=== PATIENT | male | born 1960 | race Caucasian/White ===

== ENCOUNTER 2016-08-16 10:48 | Inpatient (IN) | payer OTHER ==
[~2016-08-16] VITALS: Ht 180.3 cm; Wt 90.0 kg
[2016-08-16 11:25] VITALS: BP 150/85; PULSE 102; RESP 18; TEMP 98.7; O2SAT 94
[2016-08-16] MEDS ORDERED: SODIUM CHLOR 0.9% 1000 ML INJ 1,000 ML IV SCH (11:39)
[2016-08-16] MEDS ORDERED: LORazepam 2 MG/ML VIAL IV PUSH ONE (11:45)
[2016-08-16] MEDS ORDERED: ONDANSETRON HCL 4 MG/2 ML VIAL IVP ONE (11:45)
[2016-08-16 11:49] LABS: BASOPHIL # 0.1 TH/MM3 (0-0.2); BASOPHIL % 0.5 % (0.0-2.0); HEMATOCRIT 36.9 % (39.0-51.0); LYMPH % 2.6 % (9.0-44.0); LYMPHOCYTE # 0.3 TH/MM3 (1.0-4.8); MEAN CELL VOLUME 98.8 FL (80.0-100.0); MEAN CORPUSCULAR HEMOGLOBIN 34.6 PG (27.0-34.0); MONO % 8.9 % (0.0-8.0); PLATELET COUNT 92 TH/MM3 (150-450); RED BLOOD COUNT 3.74 MIL/MM3 (4.50-5.90); RED CELL DISTRIBUTION WIDTH 12.9 % (11.6-17.2); WHITE BLOOD COUNT 10.2 TH/MM3 (4.0-11.0)
[2016-08-16 11:51] LABS: HEMO FLAGS AUTO DIFF
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
[2016-08-16 12:04] LABS: ALT (GPT) 37 U/L (12-78); ANION GAP 9 MEQ/L (5-15); AST (GOT) 65 U/L (15-37); BICARBONATE 25.3 MEQ/L (21.0-32.0); BLOOD UREA NITROGEN 12 MG/DL (7-18); CHLORIDE 102 MEQ/L (98-107); GLOMERULAR FILTRATION RATE 106 ML/MIN (>89); POTASSIUM 3.5 MEQ/L (3.5-5.1); SODIUM (NA) 136 MEQ/L (136-145)
[2016-08-16 12:07] LABS: ALKALINE PHOSPHATASE 107 U/L (45-117)
[2016-08-16] MEDS ORDERED: LORazepam 1 MG TAB PO PRN (13:00)
[2016-08-16] MEDS ORDERED: FLUMAZENIL 0.5 MG/5 ML VIAL IV PUSH PRN (13:00)
[2016-08-16] MEDS ORDERED: LORazepam 2 MG TAB PO PRN (13:00)
[2016-08-16] MEDS ORDERED: THIAMINE INJ 100 MG in SODIUM CHLORIDE 0.9% INJ 100 ML IV ONE (13:00)
[2016-08-16] MEDS ORDERED: LORazepam 2 MG/ML VIAL IV PUSH PRN ×3 (13:00)
[2016-08-16] MEDS ORDERED: ONDANSETRON HCL 4 MG/2 ML VIAL IV PUSH PRN (13:00)
[2016-08-16 13:04] LABS: PLATELET ESTIMATE SMEAR LOW (NORMAL); PLATELET MORPHOLOGY NORMAL (NORMAL); SCAN/DIFF AUTO DIFF CONFIRMED
--- NOTE | 2016-08-16 13:13 | RADRPT ---
EXAM DATE/TIME: 08/16/2016 12:17 [facility] COMPARISON: CT BRAIN W/O CONTRAST, November 30, 2012, 19:53. CT BRAIN W/O CONTRAST, December 09, 2015, 16:26. CT BRAIN W/ O CONTRAST, July 11, 2016, 20:03. INDICATIONS : Seizure today. RADIATION DOSE: 56.36 CTDIvol (mGy) MEDICAL HISTORY : Chronic obstructive pulmonary disease. Seizures. Diabetes SURGICAL HISTORY : Tonsillectomy. Neuro surg ENCOUNTER: Initial ACUITY: 1 day PAIN SCALE: 8/10 LOCATION: cranial TECHNIQUE: Multiple contiguous axial images were obtained of the head. Using automated exposure control and adj ustment of the mA and/or kV according to patient size, radiation dose was kept as low as reasonably a chievable to obtain optimal diagnostic quality images. FINDINGS: The ventricles are enlarged with a prominent sulcal pattern compatible with atrophic change. No acute intracranial hemorrhage, acute cortical infarction, mass or midline shift is seen. Posterior fossa s tructures are unremarkable. Bone windows are unremarkable. There is chronic because of disease completely opacifying the right ma xillary sinus with increased density centrally characteristics of a chronic process. This is dilating the medial wall of the right maxillary sinus with bone destruction extending into nasal cavity. CONCLUSION: 1. No evidence of acute intracranial pathology. No masses are identified. Diffuse cortical atrophy 2. Complete opacification right maxillary sinus which may reflect mucocele though malignancy cannot b e entirely excluded. Dedicated CT scan of the sinuses with contrast is recommended Vishal Gonzalez MD on August 16, 2016 at 13:07 Board Certified Radiologist. This report was verified electronically.
[2016-08-16 14:30] VITALS: BP 164/89; PULSE 102; RESP 20; O2SAT 94
[2016-08-16 17:00] VITALS: BP 158/62; PULSE 102; RESP 20; O2SAT 99
[2016-08-16 19:09] LABS: BLOOD, URINE MOD (NEG); COMMENT (UR) CULT NOT INDICATED; CULTURE IF INDICATED CULT NOT INDICATED; GLUCOSE,URINE TRACE mg/dL (NEG); HYALINE CAST, URINE 1 /lpf (RARE); KETONE, URINE 40 mg/dL (NEG); MUCUS URINE FEW /lpf (OCC); NITRITE,URINE NEG (NEG); SQUAMOUS EPITHELIAL CELL URINE <1 /hpf (0-5); URINE COLOR YELLOW (YELLW/STRAW)
--- NOTE | 2016-08-16 19:12 | PD ---
Physical Exam Date Seen by Provider: Aug 16, 2016 Time Seen by Provider: 19:09 Narrative 54-year-old male that presents to the ED for evaluation of alcohol abuse and psychiatric screening. Please refer to my prior note. Unfortunately my attending sign my note before I could finish the noted. Patient was cleared by psychiatry. Patient has been having lots of tremors and he is very unsteady on his gait. Patient appears to be in active alcohol withdrawal. CIWA protocol ordered but patient still having difficulty. I spoke with my attending who recommends admission for alcohol DTs Data Data Last Documented VS Vital Signs Date Time Temp Pulse Resp B/P Pulse Ox O2 Delivery O2 Flow Rate FiO2 08/16/16 17:00 102 20 158/62 99 Room Air 08/16/16 11:25 98.7 Orders Complete Blood Count With Diff (08/16/16 11:31) Urinalysis - C+S If Indicated (08/16/16 11:31) Psych Screen (08/16/16 11:31) Alcohol (Ethanol) (08/16/16 11:34) Comprehensive Metabolic Panel (08/16/16 11:34) Ondansetron Inj (Zofran Inj) (08/16/16 11:45) Sodium Chlor 0.9% 1000 Ml Inj (Ns 1000 M (08/16/16 11:39) Ct Brain W/O Iv Contrast(Rout) (08/16/16 11:39) Lorazepam Inj (Ativan Inj) (08/16/16 11:45) Lactic Acid (08/16/16 11:39) Alcohol Withdrawal Asmt-Ciwa ONCE (08/16/16 12:47) Ondansetron Inj (Zofran Inj) (08/16/16 13:00) Flumazenil Inj (Romazicon Inj) (08/16/16 13:00) Lorazepam (Ativan) (08/16/16 13:00) Lorazepam Inj (Ativan Inj) (08/16/16 13:00) Lorazepam (Ativan) (08/16/16 13:00) Lorazepam Inj (Ativan Inj) (08/16/16 13:00) Lorazepam Inj (Ativan Inj) (08/16/16 13:00) Lorazepam Inj (Ativan Inj) (08/16/16 13:00) Thiamine Inj (Thiamine Inj) (08/16/16 13:00) Labs Laboratory Tests Test 08/16/16 08/16/16 08/16/16 08/16/16 11:32 11:37 12:01 18:50 Sodium Level 136 MEQ/L Potassium Level 3.5 MEQ/L Chloride Level 102 MEQ/L Carbon Dioxide Level 25.3 MEQ/L Anion Gap 9 MEQ/L Blood Urea Nitrogen 12 MG/DL Creatinine 0.77 MG/DL Estimat Glomerular Filtration 106 ML/MIN Rate Random Glucose 109 MG/DL Calcium Level 9.3 MG/DL Total Bilirubin 1.0 MG/DL Aspartate Amino Transf 65 U/L (AST/SGOT) Alanine Aminotransferase 37 U/L (ALT/SGPT) Alkaline Phosphatase 107 U/L Total Protein 8.5 GM/DL Albumin 3.5 GM/DL Ethyl Alcohol Level LESS THAN 3 MG/DL White Blood Count 10.2 TH/MM3 Red Blood Count 3.74 MIL/MM3 Hemoglobin 12.9 GM/DL Hematocrit 36.9 % Mean Corpuscular Volume 98.8 FL Mean Corpuscular Hemoglobin 34.6 PG Mean Corpuscular Hemoglobin 35.0 % Concent Red Cell Distribution Width 12.9 % Platelet Count 92 TH/MM3 Mean Platelet Volume 7.8 FL Neutrophils (%) (Auto) 88.0 % Lymphocytes (%) (Auto) 2.6 % Monocytes (%) (Auto) 8.9 % Eosinophils (%) (Auto) 0.0 % Basophils (%) (Auto) 0.5 % Neutrophils # (Auto) 9.0 TH/MM3 Lymphocytes # (Auto) 0.3 TH/MM3 Monocytes # (Auto) 0.9 TH/MM3 Eosinophils # (Auto) 0.0 TH/MM3 Basophils # (Auto) 0.1 TH/MM3 CBC Comment AUTO DIFF Differential Comment AUTO DIFF CONFIRMED Platelet Estimate LOW Platelet Morphology Comment NORMAL Lactic Acid Level 0.9 mmol/L Urine Color YELLOW Urine Turbidity CLEAR Urine pH 6.0 Urine Specific [place] 1.018 Urine Protein 30 mg/dL Urine Glucose (UA) TRACE mg/dL Urine Ketones 40 mg/dL Urine Occult Blood MOD Urine Nitrite NEG Urine Bilirubin NEG Urine Urobilinogen LESS THAN 2.0 MG/DL Urine Leukocyte Esterase NEG Urine RBC 6 /hpf Urine WBC 1 /hpf Urine Squamous Epithelial <1 /hpf Cells Urine Hyaline Casts 1 /lpf Urine Mucus FEW /lpf Microscopic Urinalysis Comment CULT NOT INDICATED MDM Medical Record Reviewed: Yes Supervised Visit with FIDE: No Differential Diagnosis Alcohol withdrawal versus DTs versus tremor versus alcohol abuse versus psychiatric illness Narrative Course 54-year-old male that presents to the ED for evaluation of alcohol abuse and psychiatric screening. Please refer to my prior note. Unfortunately my attending sign my note before I could finish the noted. Patient was cleared by psychiatry. Patient has been having lots of tremors and he is very unsteady on his gait. Patient appears to be in active alcohol withdrawal. CIWA protocol ordered but patient still having difficulty and appears to be more unsteady than on initial presentation. I spoke with my attending who recommends admission for alcohol DTs. HEPAS was paged and Dr Castanon agrees to admission. Diagnosis Primary Impression: DTs (delirium tremens) Additional Impression: Alcohol use disorder Admitting Information Admitting Physician Requests: Observation Scripts No Active Prescriptions or Reported Meds Alfred Haynes Aug 16, 2016 19:12
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
[2016-08-16] MEDS ORDERED: BISACODYL 10 MG SUPP PR PRN (19:45)
[2016-08-16] MEDS ORDERED: ONDANSETRON HCL 4 MG/2 ML VIAL IVP PRN (19:45)
[2016-08-16] MEDS ORDERED: ACETAMINOPHEN 325 MG TAB PO PRN (19:45)
[2016-08-16] MEDS ORDERED: SODIUM CHLORIDE 0.9% FLUSH 5 ML FLUSH FLUSH PRN (19:45)
[2016-08-16] MEDS: SODIUM CHLOR 0.9% 1000 ML INJ 1,000 ML IV SCH (20:00)
[2016-08-16] MEDS: LORazepam 2 MG/ML VIAL IV PUSH PRN (20:05)
[2016-08-16] MEDS: MULTIVITAMIN INJ 10 ML, FOLIC ACID INJ 1 MG in SODIUM CHLORID 0.9% 500 ML INJ 500 ML IV SCH (23:20)
[2016-08-16] MEDS: SODIUM CHLORIDE 0.9% FLUSH 5 ML FLUSH FLUSH SCH (23:20)
[2016-08-16 23:21] VITALS: BP 148/78; PULSE 87; RESP 18; O2SAT 96
[2016-08-17] MEDS: SODIUM CHLOR 0.9% 1000 ML INJ 1,000 ML IV SCH ×2 (05:47→18:49)
[2016-08-17 05:59] VITALS: BP 156/75; PULSE 83; RESP 18; O2SAT 92
[2016-08-17] MEDS: LORazepam 2 MG/ML VIAL IV PUSH PRN (06:02)
[2016-08-17 07:19] LABS: AUTOMATED NEUTROPHIL # 4.9 TH/MM3 (1.8-7.7); BASOPHIL % 0.4 % (0.0-2.0); EOSINOPHIL # 0.1 TH/MM3 (0-0.4); EOSINOPHIL % 1.1 % (0.0-4.0); HEMATOCRIT 37.7 % (39.0-51.0); LYMPH % 11.7 % (9.0-44.0); LYMPHOCYTE # 0.8 TH/MM3 (1.0-4.8); MEAN CELL VOLUME 99.6 FL (80.0-100.0); MEAN CORPUSCULAR HEMOGLOBIN 34.8 PG (27.0-34.0); MONO % 14.7 % (0.0-8.0); NEUT % 72.1 % (16.0-70.0); PLATELET COUNT 88 TH/MM3 (150-450); RED BLOOD COUNT 3.78 MIL/MM3 (4.50-5.90); RED CELL DISTRIBUTION WIDTH 12.7 % (11.6-17.2); WHITE BLOOD COUNT 6.8 TH/MM3 (4.0-11.0)
[2016-08-17 07:29] LABS: ALT (GPT) 26 U/L (12-78); ANION GAP 9 MEQ/L (5-15); AST (GOT) 57 U/L (15-37); BICARBONATE 23.8 MEQ/L (21.0-32.0); BLOOD UREA NITROGEN 10 MG/DL (7-18); CHLORIDE 101 MEQ/L (98-107); GLOMERULAR FILTRATION RATE 118 ML/MIN (>89); SODIUM (NA) 134 MEQ/L (136-145)
[2016-08-17 07:30] LABS: ALKALINE PHOSPHATASE 96 U/L (45-117)
[2016-08-17 07:31] LABS: HEMO FLAGS AUTO DIFF
[2016-08-17 08:31] VITALS: BP 132/61; PULSE 83; RESP 18; O2SAT 96
[2016-08-17 08:31] LABS: BANDS 4 % (0-6); EOSINOPHILS 1 % (0-4); NEUTROPHIL # MANUAL DIFF 5.6 TH/MM3 (1.8-7.7); POLYS (SEG NEUTROPHILS) 79 % (16-70); WBC DIFF SAMPLE 100
[2016-08-17 08:32] LABS: PLATELET ESTIMATE SMEAR LOW (NORMAL); PLATELET MORPHOLOGY NORMAL (NORMAL); SCAN/DIFF FINAL DIFF MANUAL
[2016-08-17] MEDS: SODIUM CHLORIDE 0.9% FLUSH 5 ML FLUSH FLUSH SCH ×2 (08:32→20:08)
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
[2016-08-17] MEDS ORDERED: PANTOPRAZOLE SOD 40 MG DELAYED RELEASE TAB PO SCH (09:45)
[2016-08-17] MEDS ORDERED: IOHEXOL 350 MG/ML 10 ML VIAL (for RAD DIAG) IV ONE (09:58)
[2016-08-17] MEDS: POTASSIUM CHLORIDE 20 MEQ CONTROLLED RELEASE TAB PO SCH ×3 (10:00→18:49)
--- NOTE | 2016-08-17 11:09 | RADRPT ---
EXAM DATE/TIME: 08/17/2016 09:55 [facility] COMPARISON: CT BRAIN W/O CONTRAST, August 16, 2016, 12:17. INDICATIONS : Occlusion. IV CONTRAST: 70 cc Omnipaque 350 (iohexol) IV RADIATION DOSE: 11.94 CTDIvol (mGy) MEDICAL HISTORY : Chronic obstructive pulmonary disease. Seizures. Diabetes mellitus type 2. SURGICAL HISTORY : Tonsillectomy. Neuro surgery. ENCOUNTER: Initial ACUITY: 1 day PAIN SCALE: 2/10 LOCATION: Right sinuses TECHNIQUE: Volumetric scanning of the paranasal sinuses was performed. Using automated exposure control and adj ustment of the mA and/or kV according to patient size, radiation dose was kept as low as reasonably a chievable to obtain optimal diagnostic quality images. FINDINGS: MAXILLARY SINUSES: Complete opacification of the right maxillary sinus. Nonenhancing rounded fluid density extends throu gh the medial wall the right maxillary sinus. Erosion or surgical defect of the medial wall of the ri ght maxillary sinus. Periapical cyst of right maxillary molar with adjacent defect in the floor of th e right maxillary sinus. Moderate severity diffuse mucosal thickening of the left maxillary sinus. Li carlos surgical defect of the medial wall of the left maxillary sinus. ETHMOID SINUSES: Mild bilateral ethmoid sinus mucosal thickening. SPHENOID SINUSES: Sphenoid sinuses are clear. FRONTAL SINUSES: Frontal sinuses are clear. NASAL FOSSA: Postsurgical defects of the middle turbinates. Postsurgical findings in the expected regions of the o steomeatal complexes. OTHER: Normal. Limited views of the skull base and orbits are unremarkable. CONCLUSION: 1. No enhancement of the mass like area protruding through the bony defect in the medial wall of the maxillary sinus on the right. Findings indicate a mucus retention cyst/mucocele. This finding complet sallie opacifies the right maxillary sinus. There is a defect in the floor of the right maxillary sinus indicating with periapical lucency of a right-sided maxillary molar. 2. Postsurgical findings of the medial balderas of the maxillary sinuses bilaterally. 3. Moderate mucosal thickening of the left maxillary sinus. 4. Mild ethmoid sinus mucosal thickening. Ede Lucio MD on August 17, 2016 at 11:01 Board Certified Radiologist. This report was verified electronically.
[2016-08-17] MEDS: DOXYCYCLINE HYCLATE 100 MG CAP PO SCH ×2 (11:54→20:07)
[2016-08-17 12:17] VITALS: BP 164/99; PULSE 79; RESP 18; O2SAT 99
[2016-08-17 15:30] VITALS: BP 161/92; PULSE 81; RESP 18; TEMP 98.3; O2SAT 98
[2016-08-17 16:01] VITALS: BP 136/86; PULSE 81; RESP 18; O2SAT 96
--- NOTE | 2016-08-17 19:35 | MG ---
cc: HANANE NI MD Lab No: [id number] Date: 08/17/2016 Age: Sex: M Race: 55-year-old with history of alcohol withdrawal, possible seizure activity. Increased beta frequencies. Spindles with moderate generalized slowing. 2-3 Hz delta, 10-40 microvolts appeared to be in stage II sleep during episodes of arousal appropriate change in posterior rhythm to alpha beta frequencies. Limited driving with photic stimulation. Single lead EKG showing sinus rhythm. INTERPRETATION: Predominant stage II sleep with brief episodes of normal wakefulness. No epileptic activity. Clinical correlation. Hanane Ni MD /LEVON /7:21 PM /7:33 PM
[2016-08-17 20:00] VITALS: BP 163/101; PULSE 83; RESP 20; TEMP 99.3; O2SAT 93
[2016-08-17] MEDS: MULTIVITAMIN INJ 10 ML, FOLIC ACID INJ 1 MG in SODIUM CHLORID 0.9% 500 ML INJ 500 ML IV SCH (20:08)
[2016-08-17] MEDS ORDERED: THIAMINE INJ 100 MG in SODIUM CHLORIDE 0.9% INJ 100 ML IV SCH (21:00)
[2016-08-18] VITALS: BP 148/88; PULSE 86; RESP 20; TEMP 98.7; O2SAT 97
[2016-08-20] MEDS ORDERED: THIAMINE HCL 100 MG TAB PO SCH (09:00)
== END 2016-08-18 03:43 | disposition left against medical advice (07) | DRG 894 ==
LOC: NEDAMB 10:48 → NEDA 19:23 → N06B 08-17 16:42
PROVIDERS: ADMIT Hospitalist; ATTEND Hospitalist
DX: F10.231 Alcohol dependence with withdrawal delirium (principal); J44.9 Chronic obstructive pulmonary disease, unspecified; G40.89 Other seizures; F25.9 Schizoaffective disorder, unspecified; G40.909 Epilepsy, unspecified, not intractable, without status epilepticus; F17.210 Nicotine dependence, cigarettes, uncomplicated; F12.90 Cannabis use, unspecified, uncomplicated; E87.6 Hypokalemia; Z88.0 Allergy status to penicillin; J32.9 Chronic sinusitis, unspecified
CPT/HCPCS: 70450; 70487; 80053; 80320; 81001; 82948; 83605; 83690; 83735; 84100; 85007; 85025; 85027; 95819; 96361; 96365; 96375; J2060; J2405; J3411; J7030; J7040; Q9967

== ENCOUNTER 2016-10-11 19:09 | Emergency (ER) | payer OTHER ==
[~2016-10-11] VITALS: Ht 172.7 cm; Wt 67.0 kg
[2016-10-11 19:21] VITALS: BP 130/83; PULSE 95; RESP 18; TEMP 98.7; O2SAT 97
[2016-10-11 19:56] LABS: AUTOMATED NEUTROPHIL # 2.3 TH/MM3 (1.8-7.7); BASOPHIL % 0.8 % (0.0-2.0); EOSINOPHIL # 0.1 TH/MM3 (0-0.4); EOSINOPHIL % 1.5 % (0.0-4.0); HEMO FLAGS DIFF FINAL; LYMPHOCYTE # 1.1 TH/MM3 (1.0-4.8); MEAN CELL VOLUME 98.7 FL (80.0-100.0); MEAN CORPUSCULAR HGB CONC 35.4 % (32.0-36.0); MONO % 12.8 % (0.0-8.0); NEUT % 57.9 % (16.0-70.0); PLATELET COUNT 104 TH/MM3 (150-450); RED BLOOD COUNT 3.85 MIL/MM3 (4.50-5.90); RED CELL DISTRIBUTION WIDTH 13.4 % (11.6-17.2)
[2016-10-11 20:10] LABS: BICARBONATE 24.1 MEQ/L (21.0-32.0); POTASSIUM 3.6 MEQ/L (3.5-5.1)
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
[2016-10-11] MEDS ORDERED: FLUMAZENIL 0.5 MG/5 ML VIAL IV PUSH PRN (20:45)
[2016-10-11] MEDS ORDERED: LORazepam 2 MG/ML VIAL IV PUSH PRN ×4 (20:45)
[2016-10-11] MEDS ORDERED: LORazepam 2 MG TAB PO PRN (20:45)
[2016-10-11 22:10] VITALS: BP 130/70; PULSE 87; RESP 18; O2SAT 98
[2016-10-12 02:03] VITALS: BP 132/87; PULSE 88; RESP 20; O2SAT 95
[2016-10-12] MEDS: LORazepam 1 MG TAB PO PRN ×3 (06:24→18:34)
[2016-10-12 06:28] VITALS: BP 118/66; PULSE 77; RESP 19; O2SAT 95
[2016-10-12 07:21] LABS: AMPHETAMINE, URINE NEG (NEG); BARBITURATES, URINE NEG (NEG); COCAINE, URINE NEG (NEG)
--- NOTE | 2016-10-12 08:13 | MB ---
cc: VISHAL REESE MD DATE OF CONSULTATION: 10/12/2016 PHYSICIAN REQUESTING CONSULTATION Emergency Department REASON FOR CONSULTATION Robles Act. HISTORY OF PRESENT ILLNESS Mr. Evans is a 55-year-old male with a reported history of bipolar disorder, who presents under a Robles Act from the [place] [employer] alleging that the subject advised that he feels suicidal and wants to kill himself. The subject advised that he would jump in front of a bus to do so. Reviewing the electronic medical record, I see an extensive alcohol history for this patient. I saw the patient in consultation back in February of last year, and shortly before that he was admitted under my care on the inpatient psychiatric unit and left against medical advice. The patient is seen and examined. Chart reviewed. I note the patient's alcohol level on presentation here was 379. The case was discussed with the nurse in the J-pod. On my examination today, the patient is clinically sober. He says that he feels "like shit." This is apparently both physically and mentally. He says that he gets "depressed and suicidal" when he drinks. The patient says that he does not want to live anymore as a consequence of his drinking. He endorses feeling quite depressed as a consequence of his drinking. He also endorses racing thoughts. He initially denies audiovisual hallucinations but then later says that he hears voices that "keeps saying things." He does not appear internally stimulated. No evident delusions. No hypomanic or manic symptoms. The remainder of the psychiatric ROS is negative. PAST PSYCHIATRIC HISTORY History of bipolar disorder and alcoholism. The patient reports that he has not been under psychiatric care on an outpatient basis for several years. His most recent psychiatric admission was here in February of last year. He endorses a history of one prior suicide attempt by overdose about 20 years ago. FAMILY HISTORY The patient denies any family history of mental illness or suicide. CHEMICAL DEPENDENCY HISTORY The patient is drinking heavily daily. He says that he drinks at least eight beers a day. He denies any history of blackouts, but does endorse a history of DTs and withdrawal seizures. He also notes that he gets depressed and suicidal when he drinks. He denies any other substance use. SOCIAL HISTORY The patient reports that he is presently homeless. He is . He reports that he is unable to work because of physical issues. He is applying for Disability. Denies any or legal history. Denies any access to guns or firearms. Believes in God. PAST MEDICAL HISTORY History of foot issues and also complains of diarrhea. REVIEW OF SYSTEMS Except as above, no reported headache, vision or hearing changes, chest pain, shortness of breath, bladder issues. No other physical complaints. PHYSICAL EXAMINATION VITAL SIGNS: Temperature 98.7, pulse 77, respirations 19, blood pressure 118/66, pulse oximetry 95% on room air. A physical examination was completed in the emergency room by the ER staff and the patient was medically cleared. On my examination today, the patient appears to be in no acute physical distress. He has a mild, somewhat distractible hand tremor, but no diaphoresis, no mydriasis, no tongue fasciculations, no other signs of alcohol withdrawal. LABORATORY REVIEW CBC is significant for a thrombocytopenia at 104. BMP is significant for mild hyperglycemia at 111. LFTs are not available for my review. Urine toxicology negative. Alcohol level 379 and that was at approximately 8:00 p.m. last evening. MENTAL STATUS EXAMINATION The patient is in a hospital gown. He is disheveled and visibly dirty. He is awake and alert and oriented to person and hospital at least. No signs of delirium. Motor exam as above. Speech is within normal limits for rate, tone and volume. Language and fund of knowledge seem average. Mood is reportedly depressed and affect is quite dysphoric. Thought process linear. No loosening of associations. No evident delusions. Reports hallucinatory material as above, but does not appear internally stimulated. Endorses suicidal ideation, in particular not wanting to live in his current state. No reported urge to hurt himself in the ED. No homicidal ideation. Insight and judgment are poor, particularly with respect to his substance use. ASSESSMENT AND PLAN 1. Alcohol dependence with alcohol-induced mood disorder, F10.24. This is a 55-year-old male with a psychiatric history as detailed above who presents under Rob[place] Act. The patient's primary issues appear to be alcohol related, and the patient himself notes that he gets depressed and suicidal chiefly when he drinks. Consequently, I think it makes the most sense to focus our treatment on the alcoholism. I will lift the Robles Act and place the patient under a physician certificate and have instructed the nursing staff to refer the patient to the addiction receiving facility for further care. While the patient is in the J-pod I will place the patient on a CIWA scale with Ativan for the management of any withdrawal along with thiamine, folate, seizure and fall precautions. Case discussed with RN in the J-pod. Thank you very much for this consultation. Vishal LINDSAY /7:48 AM /7:57 AM MTDJamari
[2016-10-12] MEDS: THIAMINE HCL 100 MG TAB PO SCH (09:00)
[2016-10-12] MEDS: FOLIC ACID 1 MG TAB PO SCH (09:00)
[2016-10-12 10:00] VITALS: BP 131/63; PULSE 82; RESP 18
[2016-10-12 19:44] VITALS: BP 121/88; PULSE 122; RESP 18; O2SAT 95
[2016-10-13 02:01] VITALS: BP 139/85; PULSE 84; RESP 18; O2SAT 97
[2016-10-13 06:23] VITALS: BP 131/86; PULSE 93; RESP 18; TEMP 97.4; O2SAT 96
[2016-10-13] MEDS: THIAMINE HCL 100 MG TAB PO SCH (09:02)
[2016-10-13] MEDS: FOLIC ACID 1 MG TAB PO SCH (09:02)
[2016-10-13] MEDS: LORazepam 1 MG TAB PO PRN (09:06)
[2016-10-13 10:44] VITALS: BP 146/80; PULSE 77; RESP 18; O2SAT 96
--- NOTE | 2016-10-13 14:42 | HHI.PYPN ---
Subjective Remarks Pt seen in follow up. Chart reviewed. Case d/w RN in J-Pod. No evidence of suicidality or homicidality while under observation in J-Pod. No movement in addiction receiving facility wait-list; patient is unlikely to be accepted there , unfortunately. Patient is requesting d/c from ED. He denies any SI/HI. He says that he is worried about his , who is also homeless, because she is wheelchair bound. No AVH. Sensorium is clear and there is no evidence of delirium. No evidence of unstable mood, anxiety or psychotic disorder at this time. Review of Systems Except as stated in HPI: all other systems reviewed are Neg Objective Alert: Yes Craig: Person, Place, Date (month, year), Situation Mood: Anxious Affect: Blunted Memory Intact: Comment (Not formally assessed today) Hallucinations: Other (Denies) Delusions: No Delusion Type: Other (No delusions) Suicidal: Ideation (Denies SI, intent, plan) Homicidal: Ideation (Denies HI, intent, plan) Insight/Judgement Fair at best Remarks Hand tremor but no diaphoresis, mydriasis or tongue fascics. No other signs of withdrawal. Thought process linear. Speech wnl for rate, tone, volume. Labs Labs reviewed. Vitals/IOs Vital Signs Date Time Temp Pulse Resp B/P Pulse Ox O2 Delivery O2 Flow Rate FiO2 10/13/16 10:44 77 18 146/80 96 Room Air 10/13/16 06:23 97.4 Assessment & Plan Problem List: (1) Alcohol dependence Assessment & Plan: Alcohol-induced mood disorder improved ICD Code: F10.20 Assessment & Plan Patient recanting suicidal ideation and requesting discharge from the psychiatric emergency room. No evidence of unstable mood, anxiety or psychotic disorder in this patient at this time. Given that it seems unlikely that the patient will be accepted to the addiction receiving facility, best course of action at this point seems to be to lift the physician's certificate and refer the patient for outpatient chemical dependency assessment and treatment. Physician's certificate lifted. I will provide the patient with Librium 50 mg once prior discharge for the management of current withdrawal symptoms. Patient psychiatrically clear for discharge. Patient to return to the psychiatric emergency room for any concerning psychiatric symptoms. Justification for Cont. Inpt. Psychiatrically clear for discharge from ED Request HC Surrog/Guard Advoc?: No Problem Qualifiers (1) Alcohol dependence: Qualified Code: F10.20 - Uncomplicated alcohol dependence Vishal Tejeda MD Oct 13, 2016 14:42
[2016-10-13] MEDS ORDERED: chlordiazePOXIDE 25 MG CAP PO ONE (15:00)
[2016-10-13 16:57] VITALS: BP 134/87; PULSE 122; RESP 20; TEMP 97.1; O2SAT 98
== END 2016-10-13 16:59 | disposition home or self-care (01) ==
LOC: NEPJ 19:09
DX: F10.24 Alcohol dependence with alcohol-induced mood disorder (principal); R45.851 Suicidal ideations; F20.9 Schizophrenia, unspecified; J44.9 Chronic obstructive pulmonary disease, unspecified; F41.9 Anxiety disorder, unspecified; F31.9 Bipolar disorder, unspecified; Y90.8 Blood alcohol level of 240 mg/100 ml or more
CPT/HCPCS: 80048; 80307; 85025; 96374; 99283; J2060

== ENCOUNTER 2016-12-25 19:41 | Observation (INO) | payer OTHER ==
[2016-12-25] MEDS ORDERED: SODIUM CHLOR 0.9% 1000 ML INJ 1,000 ML IV SCH ×2 (19:51→21:35)
[2016-12-25] MEDS ORDERED: ONDANSETRON HCL 4 MG/2 ML VIAL IVP ONE (20:00)
[2016-12-25] MEDS ORDERED: THIAMINE INJ 100 MG in SODIUM CHLORIDE 0.9% INJ 100 ML IV ONE (20:00)
[2016-12-25] MEDS ORDERED: LORazepam 2 MG/ML VIAL IV PUSH ONE ×2 (20:00→23:30)
[2016-12-25 20:13] VITALS: BP 172/86; PULSE 83; RESP 20; TEMP 99.2; O2SAT 94
[2016-12-25 20:21] VITALS: BP 165/88; PULSE 88; RESP 20; O2SAT 95
[2016-12-25 20:23] LABS: AUTOMATED NEUTROPHIL # 4.9 TH/MM3 (1.8-7.7); BASOPHIL % 0.4 % (0.0-2.0); EOSINOPHIL % 0.1 % (0.0-4.0); HEMATOCRIT 34.1 % (39.0-51.0); LYMPH % 8.3 % (9.0-44.0); LYMPHOCYTE # 0.5 TH/MM3 (1.0-4.8); MEAN CELL VOLUME 97.6 FL (80.0-100.0); MEAN CORPUSCULAR HEMOGLOBIN 34.1 PG (27.0-34.0); MEAN CORPUSCULAR HGB CONC 34.9 % (32.0-36.0); MONO % 13.7 % (0.0-8.0); NEUT % 77.5 % (16.0-70.0); PLATELET COUNT 82 TH/MM3 (150-450); RED CELL DISTRIBUTION WIDTH 13.7 % (11.6-17.2); WHITE BLOOD COUNT 6.3 TH/MM3 (4.0-11.0)
[2016-12-25 20:24] LABS: HEMO FLAGS DIFF FINAL
[2016-12-25 20:48] LABS: ALT (GPT) 16 U/L (12-78)
--- NOTE | 2016-12-25 20:54 | RADRPT ---
EXAM DATE/TIME: 12/25/2016 20:39 [facility] COMPARISON: CT BRAIN W/O CONTRAST, August 16, 2016, 12:17. INDICATIONS : Dizziness. RADIATION DOSE: 40.22 CTDIvol (mGy) MEDICAL HISTORY : Cardiovascular disease. Diabetes mellitus type 2. Chronic obstructive pulmonary disease.Seizures SURGICAL HISTORY : None. ENCOUNTER: Initial ACUITY: 1 day PAIN SCALE: 0/10 LOCATION: cranial TECHNIQUE: Multiple contiguous axial images were obtained of the head. Using automated exposure control and adj ustment of the mA and/or kV according to patient size, radiation dose was kept as low as reasonably a chievable to obtain optimal diagnostic quality images. FINDINGS: CEREBRUM: The ventricles are normal for age. No evidence of midline shift, mass lesion, hemorrhage or acute in farction. No extra-axial fluid collections are seen. Atrophy and chronic low attenuation of the whit e matter again noted. POSTERIOR FOSSA: The cerebellum and brainstem are intact. The 4th ventricle is midline. The cerebellopontine angle i s unremarkable. EXTRACRANIAL: The visualized portion of the orbits is intact. SKULL: The calvaria is intact. No evidence of skull fracture. CONCLUSION: No acute intracranial abnormality. Akbar Kelly MD on December 25, 2016 at 20:51 Board Certified Radiologist. This report was verified electronically.
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
[2016-12-25 20:58] LABS: ALKALINE PHOSPHATASE 107 U/L (45-117)
[2016-12-25 21:18] LABS: ANION GAP 11 MEQ/L (5-15); AST (GOT) 52 U/L (15-37); BICARBONATE 23.6 MEQ/L (21.0-32.0); BLOOD UREA NITROGEN 7 MG/DL (7-18); CHLORIDE 98 MEQ/L (98-107); GLOMERULAR FILTRATION RATE 98 ML/MIN (>89); MAGNESIUM 1.5 MG/DL (1.5-2.5); SODIUM (NA) 133 MEQ/L (136-145)
[2016-12-25 21:20] LABS: POTASSIUM 5.5 MEQ/L (3.5-5.1)
[2016-12-25 21:54] LABS: AMPHETAMINE, URINE NEG (NEG); BARBITURATES, URINE NEG (NEG); COCAINE, URINE NEG (NEG)
[2016-12-26] VITALS (9 sets, daily range): BP systolic 125–176; BP diastolic 84–94; PULSE 69–103; RESP 18–20; TEMP 96.4–99.2; O2SAT 94–97
[2016-12-26] MEDS ORDERED: ONDANSETRON HCL 4 MG/2 ML VIAL IVP PRN
[2016-12-26] MEDS ORDERED: LORazepam 2 MG/ML VIAL IV PUSH PRN ×2
[2016-12-26] MEDS ORDERED: NALOXONE HCL 0.4 MG/ML AMP IV PRN
[2016-12-26] MEDS ORDERED: LORazepam 1 MG TAB PO PRN
[2016-12-26] MEDS ORDERED: FLUMAZENIL 0.5 MG/5 ML VIAL IV PUSH PRN
[2016-12-26] MEDS ORDERED: SODIUM CHLORIDE 0.9% FLUSH 10 ML FLUSH IV FLUSH PRN ×2
[2016-12-26] MEDS ORDERED: LORazepam 2 MG TAB PO PRN
--- NOTE | 2016-12-26 00:03 | PD ---
Data Data Last Documented VS Vital Signs Date Time Temp Pulse Resp B/P Pulse Ox O2 Delivery O2 Flow Rate FiO2 12/25/16 20:21 88 20 165/88 95 12/25/16 20:13 99.2 Orders Electrocardiogram (12/25/16 19:51) Complete Blood Count With Diff (12/25/16 19:51) Comprehensive Metabolic Panel (12/25/16 19:51) Magnesium (Mg) (12/25/16 19:51) Thyroid Stimulating Hormone (12/25/16 19:51) Ct Brain W/O Iv Contrast(Rout) (12/25/16 19:51) Iv Access Insert/Monitor (12/25/16 19:51) Ecg Monitoring (12/25/16 19:51) Oximetry (12/25/16 19:51) Drug Screen, Random Urine (12/25/16 19:51) Alcohol (Ethanol) (12/25/16 19:51) Ondansetron Inj (Zofran Inj) (12/25/16 20:00) Sodium Chlor 0.9% 1000 Ml Inj (Ns 1000 M (12/25/16 19:51) Thiamine Inj (Thiamine Inj) (12/25/16 20:00) Lorazepam Inj (Ativan Inj) (12/25/16 20:00) Lactic Acid (12/25/16 20:05) Sodium Chlor 0.9% 1000 Ml Inj (Ns 1000 M (12/25/16 21:35) Lorazepam Inj (Ativan Inj) (12/25/16 23:30) Admit Order (Ed Use Only) (12/25/16 ) Place In Observation (12/25/16 ) Vital Signs (Adult) Q4H (12/25/16 23:53) Activity Oob With Assistance (12/25/16 23:53) Document Design Specialist / Telemetry .CONTINUOUS (12/25/16 23:53) Diet Heart Healthy (12/26/16 Breakfast) Sodium Chloride 0.9% Flush (Ns Flush) (12/26/16 00:00) Sodium Chloride 0.9% Flush (Ns Flush) (12/26/16 09:00) Ondansetron Inj (Zofran Inj) (12/26/16 00:00) Case Management Consult (12/25/16 23:53) Naloxone Inj (Narcan Inj) (12/26/16 00:00) Vital Signs (Adult) Q4H (12/25/16 23:53) Alcohol Withdrawal Asmt-Ciwa Q4HX18 (12/25/16 23:53) ^ Seizure Precautions (12/25/16 23:53) Sodium Chloride 0.9% Flush (Ns Flush) (12/26/16 00:00) Sodium Chloride 0.9% Flush (Ns Flush) (12/26/16 09:00) Consult Cm-Etoh Abuse Dc Plan (12/25/16 ) Flumazenil Inj (Romazicon Inj) (12/26/16 00:00) Lorazepam (Ativan) (12/26/16 00:00) Lorazepam Inj (Ativan Inj) (12/26/16 00:00) Lorazepam (Ativan) (12/26/16 00:00) Lorazepam Inj (Ativan Inj) (12/26/16 00:00) Lorazepam Inj (Ativan Inj) (12/26/16 00:00) Lorazepam Inj (Ativan Inj) (12/26/16 00:00) Labs Laboratory Tests Test 12/25/16 12/25/16 12/25/16 19:56 20:55 21:30 White Blood Count 6.3 TH/MM3 Red Blood Count 3.50 MIL/MM3 Hemoglobin 11.9 GM/DL Hematocrit 34.1 % Mean Corpuscular Volume 97.6 FL Mean Corpuscular Hemoglobin 34.1 PG Mean Corpuscular Hemoglobin 34.9 % Concent Red Cell Distribution Width 13.7 % Platelet Count 82 TH/MM3 Mean Platelet Volume 9.0 FL Neutrophils (%) (Auto) 77.5 % Lymphocytes (%) (Auto) 8.3 % Monocytes (%) (Auto) 13.7 % Eosinophils (%) (Auto) 0.1 % Basophils (%) (Auto) 0.4 % Neutrophils # (Auto) 4.9 TH/MM3 Lymphocytes # (Auto) 0.5 TH/MM3 Monocytes # (Auto) 0.9 TH/MM3 Eosinophils # (Auto) 0.0 TH/MM3 Basophils # (Auto) 0.0 TH/MM3 CBC Comment DIFF FINAL Differential Comment Sodium Level 133 MEQ/L Potassium Level 5.5 MEQ/L Chloride Level 98 MEQ/L Carbon Dioxide Level 23.6 MEQ/L Anion Gap 11 MEQ/L Blood Urea Nitrogen 7 MG/DL Creatinine 0.82 MG/DL Estimat Glomerular Filtration 98 ML/MIN Rate Random Glucose 99 MG/DL Calcium Level 8.8 MG/DL Magnesium Level 1.5 MG/DL Total Bilirubin 1.0 MG/DL Aspartate Amino Transf 52 U/L (AST/SGOT) Alanine Aminotransferase 16 U/L (ALT/SGPT) Alkaline Phosphatase 107 U/L Total Protein 8.7 GM/DL Albumin 2.8 GM/DL Thyroid Stimulating Hormone 5.760 uIU/ML 3rd Gen Ethyl Alcohol Level LESS THAN 3 MG/DL Lactic Acid Level 1.3 mmol/L Urine Opiates Screen NEG Urine Barbiturates Screen NEG Urine Amphetamines Screen NEG Urine Benzodiazepines Screen POS Urine Cocaine Screen NEG Urine Cannabinoids Screen NEG MDM Supervised Visit with FIDE: Yes Narrative Course The history, exam, and medical decision-making in the associated mid-level provider note were completed with my assistance. I reviewed and agree with the findings presented. I attest that I had a [id number] encounter with the patient on the same day, and personally performed and documented my assessment and findings in the medical record. *My assessment and Findings: 56 old man presents with seizure after being discharged from [facility], alcoholic and homeless, was in [facility] for 2 days and hasn't drank in 2 days. Normally drinks daily. History of seizures in the past. Patient with tremulousness and tachycardia now. Treated with IV fluids and benzos, but still tachycardic and tremulous. Likely ongoing alcohol withdrawal symptoms, will plan on admission for IV benzodiazepines, monitoring. Diagnosis Primary Impression: Alcohol withdrawal Qualified Code: F10.230 - Alcohol withdrawal, uncomplicated Scripts No Active Prescriptions or Reported Meds Catalino Carranza MD Dec 26, 2016 00:03
[2016-12-26] MEDS: LORazepam 2 MG/ML VIAL IV PUSH PRN ×7 (00:50→21:35)
--- NOTE | 2016-12-26 07:09 | EKG ---
Date Performed: 12/25/2016 Time Performed: 20:01:15 PTAGE: 56 years EKG: Sinus rhythm NORMAL ECG Within the constraints of artifact, no significant change. PREVIOUS TRACING : 03/15/2016 10.45 DOCTOR: Chalino Carrillo Interpretating Date/Time 12/26/2016 07:08:56
[2016-12-26] MEDS: SODIUM CHLORIDE 0.9% FLUSH 10 ML FLUSH IV FLUSH SCH ×2 (08:32→19:19)
[2016-12-26] MEDS ORDERED: FOLIC ACID 1 MG TAB PO SCH (09:00)
[2016-12-26] MEDS ORDERED: SODIUM CHLORIDE 0.9% FLUSH 10 ML FLUSH IV FLUSH SCH (09:00)
[2016-12-26] MEDS ORDERED: MULTIVITAMINS/MINERALS THERAPEUTIC TAB PO SCH (09:00)
[2016-12-26] MEDS ORDERED: THIAMINE INJ 100 MG in SODIUM CHLORIDE 0.9% INJ 100 ML IV SCH (10:00)
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
[2016-12-26 12:34] LABS: MAGNESIUM 1.5 MG/DL (1.5-2.5); POTASSIUM 3.2 MEQ/L (3.5-5.1)
[2016-12-26] MEDS: POLYMYXIN/TRIMETHOPRIM OPHT SOLN 10 ML BTL EACH EYE SCH ×3 (15:26→21:34)
[2016-12-26] MEDS ORDERED: POTASSIUM CHLORIDE 20 MEQ CONTROLLED RELEASE TAB PO ONE ×2 (18:00→20:00)
[2016-12-26] MEDS: MAGNESIUM SULFATE 1 GM PREMIX 100 ML IV SCH ×2 (18:43→19:26)
[2016-12-26] MEDS ORDERED: NICOTINE 14 MG/24 HR PATCH T-DERMAL SCH (22:40)
[2016-12-26] MEDS ORDERED: REMOVE OLD PATCH-NICOTINE T-DERMAL SCH (22:40)
--- NOTE | 2016-12-27 05:05 | HHI.PR ---
Addendum to Inpatient Note Addendum Reason: Additional Documentation Additional Information I was called by patient's nurse [phone] that patient was quite agitated and requiring Ativan to control his alcohol withdrawal. Nurse questioned whether patient should get any quitting patch because he is a heavy smoker. At that time, I had ordered for a curtain patch. At around 00 30 a.m. of December 27, 2016, I was called by patient's nurse that patient had already signed out AMA. I had questioned both the nurse and charge nurse at that time how patient could sign out AMA as patient was being treated for alcohol withdrawal and was receiving Ativan almost every hour for the past 3 hours. Patient also signed out AMA approximately within 1 hour of his last dose of Ativan. Chart reviewed. Admitting doctor's notes reviewed. Patient's alcohol level on admission was 3. [facility] prior to coming to [facility] and reportedly had alcohol withdrawal seizures prior to being brought here by [facility] staff. Therefore I had advised patient's nurse and charge nurse at that time that patient should be called back in Hospital police and [place] probably should be contacted to get him from his home. I have also ordered for a sitter at that time so that once patient arrives hospital, I would Robles act him. I then never got a phone call back. On follow-up, I was informed by staff members the patient never came back to the hospital. Apparently, patient's nurse and the charge nurse had contacted Hospital police and housekeeper supervisor and ER charge nurse questioning whether should patient be brought back to the hospital. During the conversations, patient's charge nurse believed that patient was awake , alert, oriented. Therefore the floatlight loading supervisor and the ER charge nurse had told them that patient cannot be brought back from home by police because he was not Robles acted and he was awake and alert according to their assessment. They of course were not aware of the medical conditions and reasoning behind this since they did not get a chance to repeat patient's EMR, doctor's notes, last dose of medications given. I have therefore expressed my reasoning again to patient's nurse, charge nurse, and housekeeper supervisor. I will order again for patient to be brought back to the hospital for proper evaluation and control of his withdrawal. My plan is that when patient is back, and if he is no longer in withdrawal because he had drinks as an outpatient, and assessment by a medical doctor states that patient is no longer in danger of withdrawal, then patient will be able to go home. Until then, we would need to be Robles act him and bring him back to hospital. Miguel Angel Tomlinson MD Dec 27, 2016 05:05
[2016-12-29] MEDS ORDERED: THIAMINE HCL 100 MG TAB PO SCH (09:00)
== END 2016-12-27 00:28 | disposition left against medical advice (07) ==
LOC: NEPC 19:41 → NEDA 23:55 → NEPHCDU 12-26 01:01
PROVIDERS: ADMIT Internal Medicine; ATTEND Internal Medicine
DX: F10.239 Alcohol dependence with withdrawal, unspecified (principal); R56.9 Unspecified convulsions; H10.33 Unspecified acute conjunctivitis, bilateral; E87.5 Hyperkalemia; E87.1 Hypo-osmolality and hyponatremia; F41.9 Anxiety disorder, unspecified; F31.9 Bipolar disorder, unspecified; E11.9 Type 2 diabetes mellitus without complications; J44.9 Chronic obstructive pulmonary disease, unspecified; F17.200 Nicotine dependence, unspecified, uncomplicated; F20.9 Schizophrenia, unspecified; Z88.0 Allergy status to penicillin; Z59.0 Homelessness
CPT/HCPCS: 70450; 80048; 80053; 80307; 83605; 83735; 84443; 85025; 93005; 96365; 96367; 96375; 96376; 99285; G0378; J2060; J2405; J3411; J3475; J7030

== ENCOUNTER 2017-01-29 11:33 | Inpatient (IN) | payer OTHER ==
[~2017-01-29] VITALS: Ht 172.7 cm; Wt 66.5 kg
[2017-01-29 11:45] VITALS: BP 164/89; PULSE 108; RESP 20; O2SAT 97
[2017-01-29] MEDS ORDERED: SODIUM CHLOR 0.9% 1000 ML INJ 1,000 ML IV SCH (11:51)
[2017-01-29] MEDS ORDERED: LORazepam 2 MG/ML VIAL IV PUSH ONE (12:00)
[2017-01-29 12:14] LABS: AUTOMATED NEUTROPHIL # 5.1 TH/MM3 (1.8-7.7); BASOPHIL % 0.3 % (0.0-2.0); EOSINOPHIL % 0.1 % (0.0-4.0); HEMO FLAGS AUTO DIFF; LYMPH % 10.2 % (9.0-44.0); LYMPHOCYTE # 0.7 TH/MM3 (1.0-4.8); MEAN CELL VOLUME 102.5 FL (80.0-100.0); MEAN CORPUSCULAR HEMOGLOBIN 35.1 PG (27.0-34.0); MEAN CORPUSCULAR HGB CONC 34.2 % (32.0-36.0); NEUT % 79.4 % (16.0-70.0); PLATELET COUNT 74 TH/MM3 (150-450); RED CELL DISTRIBUTION WIDTH 14.5 % (11.6-17.2); WHITE BLOOD COUNT 6.4 TH/MM3 (4.0-11.0)
--- NOTE | 2017-01-29 12:17 | RADRPT ---
EXAM DATE/TIME: 01/29/2017 11:56 [facility] COMPARISON: CHEST SINGLE AP, July 12, 2016, 0:22. INDICATIONS : Syncope, vertigo, short of breath, falling MEDICAL HISTORY : Chronic obstructive pulmonary disease. Cardiovascular disease. Diabetes mellitus type II. seizure s SURGICAL HISTORY : None. ENCOUNTER: Initial ACUITY: 1 day PAIN SCORE: 0/10 LOCATION: Bilateral chest FINDINGS: A single view of the chest demonstrates the lungs to be symmetrically aerated without evidence of mas s, infiltrate or effusion. The cardiomediastinal contours are unremarkable. Osseous structures are intact. Multiple healed left-sided rib fractures CONCLUSION: Normal examination. Catalino Esteves MD on January 29, 2017 at 12:16 Board Certified Radiologist. This report was verified electronically.
[2017-01-29 12:23] LABS: APTT (PATIENT) 24.4 SEC (24.3-30.1); PROTHROMBIN TIME - PATIENT 10.5 SEC (9.8-11.6)
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
[2017-01-29 12:46] LABS: ALT (GPT) 19 U/L (12-78); ANION GAP 24 MEQ/L (5-15); AST (GOT) 41 U/L (15-37); BICARBONATE 12.2 MEQ/L (21.0-32.0); BLOOD UREA NITROGEN 12 MG/DL (7-18); CHLORIDE 101 MEQ/L (98-107); GLOMERULAR FILTRATION RATE 58 ML/MIN (>89); MAGNESIUM 2.3 MG/DL (1.5-2.5); POTASSIUM 3.8 MEQ/L (3.5-5.1); SODIUM (NA) 137 MEQ/L (136-145)
[2017-01-29 12:47] LABS: PLATELET ESTIMATE SMEAR LOW (NORMAL); PLATELET MORPHOLOGY NORMAL (NORMAL); SCAN/DIFF AUTO DIFF CONFIRMED
[2017-01-29 12:50] LABS: ALKALINE PHOSPHATASE 95 U/L (45-117); CREATINE KINASE 248 U/L (39-308)
[2017-01-29 13:03] LABS: CKMB 0.9 NG/ML (0.5-3.6)
--- NOTE | 2017-01-29 13:08 | RADRPT ---
EXAM DATE/TIME: 01/29/2017 12:51 [facility] COMPARISON: No previous studies available for comparison. INDICATIONS : Fall, complains of right shoulder pain. Syncope, vertibo and short of breath. MEDICAL HISTORY : Chronic obstructive pulmonary disease. Cardiovascular disease. Diabetes mellitus type II. SURGICAL HISTORY : None. ENCOUNTER: Initial ACUITY: 1 day PAIN SCORE: 9/10 LOCATION: Right shoulder FINDINGS: Two view examination of the right shoulder demonstrates no evidence of fracture or dislocation. The glenohumeral and acromioclavicular joints are maintained. Bony mineralization is normal. CONCLUSION: No acute fracture. Carlos Otero MD on January 29, 2017 at 13:05 Board Certified Radiologist. This report was verified electronically.
[2017-01-29 13:12] LABS: BLOOD, URINE SMALL (NEG); COMMENT (UR) CULT NOT INDICATED; CULTURE IF INDICATED CULT NOT INDICATED; GLUCOSE,URINE 70 mg/dL (NEG); HYALINE CAST, URINE 22 /lpf (RARE); KETONE, URINE 80 mg/dL (NEG); MUCUS URINE FEW /lpf (OCC); NITRITE,URINE NEG (NEG); PH, URINE 5.5 (5.0-8.5); SQUAMOUS EPITHELIAL CELL URINE <1 /hpf (0-5); URINE COLOR YELLOW (YELLW/STRAW)
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
[2017-01-29 14:54] VITALS: BP_SYST 148; BP_SYST 151; BP_DIAS 88; BP_DIAS 96; O2SAT 99
[2017-01-29 15:50] VITALS: BP 151/76
[2017-01-29] MEDS ORDERED: FLUMAZENIL 0.5 MG/5 ML VIAL IV PUSH PRN (17:15)
[2017-01-29] MEDS ORDERED: SODIUM CHLORIDE 0.9% FLUSH 10 ML FLUSH IV FLUSH PRN (17:15)
[2017-01-29] MEDS ORDERED: LORazepam 2 MG TAB PO PRN (17:15)
[2017-01-29] MEDS ORDERED: NALOXONE HCL 0.4 MG/ML AMP IV PRN (17:15)
[2017-01-29] MEDS ORDERED: LORazepam 2 MG/ML VIAL IV PUSH PRN ×2 (17:15)
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
[2017-01-29] MEDS ORDERED: ACETAMINOPHEN 325 MG TAB PO PRN ×2 (18:00)
[2017-01-29] MEDS ORDERED: ONDANSETRON HCL 4 MG/2 ML VIAL IVP PRN (18:00)
[2017-01-29] MEDS ORDERED: cloNIDine HCL 0.1 MG TAB PO PRN (18:00)
[2017-01-29] MEDS: SODIUM CHLOR 0.9% 1000 ML INJ 1,000 ML IV SCH (18:20)
[2017-01-29] MEDS: chlordiazePOXIDE 25 MG CAP PO SCH (18:51)
[2017-01-29 19:00] VITALS: O2SAT 97
[2017-01-29 19:14] LABS: AMPHETAMINE, URINE NEG (NEG); COCAINE, URINE NEG (NEG)
[2017-01-29 19:15] LABS: BARBITURATES, URINE NEG (NEG)
[2017-01-29 19:33] VITALS: BP 134/70; PULSE 90; O2SAT 97
[2017-01-29 20:00] VITALS: BP 138/76; PULSE 85; PULSE 86; RESP 16; TEMP 98.9; O2SAT 97
[2017-01-29] MEDS: DOCUSATE SODIUM 50 MG/SENNA 8.6 MG TAB PO SCH (20:19)
[2017-01-29] MEDS: FOLIC ACID 1 MG TAB PO SCH (20:36)
[2017-01-29] MEDS: LORazepam 1 MG TAB PO PRN (20:36)
[2017-01-29] MEDS: THIAMINE HCL 100 MG TAB PO SCH (20:37)
[2017-01-29] MEDS: MULTIVITAMIN TAB PO SCH (20:37)
[2017-01-29] MEDS: SODIUM CHLORIDE 0.9% FLUSH 10 ML FLUSH IV FLUSH SCH (20:38)
[2017-01-29 20:48] LABS: BICARBONATE 19.5 MEQ/L (21.0-32.0)
[2017-01-29 20:59] LABS: CALCIUM-PROTEIN CORRECTED 7.3 MG/DL (8.5-10.1)
[2017-01-29 21:00] LABS: POTASSIUM 2.8 MEQ/L (3.5-5.1)
[2017-01-29] MEDS ORDERED: POTASSIUM CHLORIDE 20 MEQ CONTROLLED RELEASE TAB PO ONE (21:15)
[2017-01-29 23:49] LABS: ANION GAP 11 MEQ/L (5-15); BICARBONATE 24.5 MEQ/L (21.0-32.0); BLOOD UREA NITROGEN 9 MG/DL (7-18); CHLORIDE 102 MEQ/L (98-107); GLOMERULAR FILTRATION RATE 128 ML/MIN (>89); POTASSIUM 3.3 MEQ/L (3.5-5.1); SODIUM (NA) 137 MEQ/L (136-145)
[2017-01-30] VITALS: BP 124/77; PULSE 76; PULSE 78; RESP 16; TEMP 98.7; O2SAT 97
[2017-01-30] MEDS: chlordiazePOXIDE 25 MG CAP PO SCH ×2 (01:37→09:57)
[2017-01-30 04:00] VITALS: BP 130/78; PULSE 77; PULSE 79; RESP 16; TEMP 98.7; O2SAT 98
[2017-01-30] MEDS: SODIUM CHLOR 0.9% 1000 ML INJ 1,000 ML IV SCH (04:36)
[2017-01-30] MEDS: LORazepam 1 MG TAB PO PRN (05:38)
[2017-01-30 07:35] LABS: AUTOMATED NEUTROPHIL # 4.1 TH/MM3 (1.8-7.7); BASOPHIL % 0.3 % (0.0-2.0); EOSINOPHIL # 0.1 TH/MM3 (0-0.4); EOSINOPHIL % 1.4 % (0.0-4.0); HEMATOCRIT 36.9 % (39.0-51.0); LYMPH % 16.4 % (9.0-44.0); MEAN CELL VOLUME 100.6 FL (80.0-100.0); MEAN CORPUSCULAR HEMOGLOBIN 34.6 PG (27.0-34.0); MEAN CORPUSCULAR HGB CONC 34.4 % (32.0-36.0); MONO % 11.9 % (0.0-8.0); PLATELET COUNT 63 TH/MM3 (150-450); RED BLOOD COUNT 3.67 MIL/MM3 (4.50-5.90); RED CELL DISTRIBUTION WIDTH 14.4 % (11.6-17.2); WHITE BLOOD COUNT 5.9 TH/MM3 (4.0-11.0)
[2017-01-30 08:11] LABS: HEMO FLAGS AUTO DIFF
[2017-01-30 08:14] LABS: ALKALINE PHOSPHATASE 74 U/L (45-117); ALT (GPT) 15 U/L (12-78); ANION GAP 11 MEQ/L (5-15); AST (GOT) 40 U/L (15-37); BICARBONATE 22.9 MEQ/L (21.0-32.0); BLOOD UREA NITROGEN 8 MG/DL (7-18); CHLORIDE 104 MEQ/L (98-107); GLOMERULAR FILTRATION RATE 135 ML/MIN (>89); SODIUM (NA) 138 MEQ/L (136-145)
[2017-01-30 08:18] LABS: POTASSIUM 3.7 MEQ/L (3.5-5.1)
[2017-01-30 08:59] VITALS: BP 142/85; PULSE 79; RESP 20; TEMP 98; O2SAT 97
[2017-01-30] MEDS: SODIUM CHLORIDE 0.9% FLUSH 10 ML FLUSH IV FLUSH SCH (09:00)
--- NOTE | 2017-01-30 09:30 | EKG ---
Date Performed: 01/29/2017 Time Performed: 17:27:52 PTAGE: 56 years EKG: Sinus rhythm NORMAL ECG PREVIOUS TRACING : 12/25/2016 20.01 DOCTOR: Catalino Brady Interpretating Date/Time 01/30/2017 09:28:10
[2017-01-30] MEDS: THIAMINE HCL 100 MG TAB PO SCH (09:56)
[2017-01-30] MEDS: MULTIVITAMIN TAB PO SCH (09:56)
[2017-01-30] MEDS: FOLIC ACID 1 MG TAB PO SCH (09:56)
[2017-01-30] MEDS: DOCUSATE SODIUM 50 MG/SENNA 8.6 MG TAB PO SCH (09:56)
[2017-01-30 09:58] LABS: PLATELET ESTIMATE SMEAR LOW (NORMAL); PLATELET MORPHOLOGY NORMAL (NORMAL); SCAN/DIFF AUTO DIFF CONFIRMED
[2017-01-30 10:26] VITALS: O2SAT 97
[2017-01-30 12:25] VITALS: BP 150/94; PULSE 81; RESP 20; TEMP 98.6; O2SAT 97
[2017-01-30 16:34] LABS: HEMOGLOBIN A1b 0.6 %; HEMOGLOBIN Ao 85.7 %; HEMOGLOBIN P3 3.3 %
[2017-01-30 17:51] LABS: HEMOGLOBIN A1a 0.9 %; HEMOGLOBIN LA1C 1.5 %
== END 2017-01-30 13:02 | disposition left against medical advice (07) | DRG 894 ==
LOC: NEPC 11:33 → NEDA 14:42 → OBSVTOIN 17:08 → HOCA 20:00
PROVIDERS: ADMIT Hospitalist; ATTEND Hospitalist
DX: F10.231 Alcohol dependence with withdrawal delirium (principal); E87.2 Acidosis; D69.59 Other secondary thrombocytopenia; I10 Essential (primary) hypertension; F20.9 Schizophrenia, unspecified; J44.9 Chronic obstructive pulmonary disease, unspecified; R55 Syncope and collapse; F31.9 Bipolar disorder, unspecified; F41.9 Anxiety disorder, unspecified; F17.210 Nicotine dependence, cigarettes, uncomplicated; F43.9 Reaction to severe stress, unspecified; R73.9 Hyperglycemia, unspecified; Y90.0 Blood alcohol level of less than 20 mg/100 ml; Z88.0 Allergy status to penicillin
CPT/HCPCS: 70450; 71010; 73030; 80048; 80053; 80307; 81001; 82550; 82552; 83036; 83690; 83735; 84155; 84484; 85025; 85610; 85730; 93005; J2060; J7030

== ENCOUNTER 2017-02-27 18:53 | Emergency (ER) | payer OTHER ==
[~2017-02-27] VITALS: Ht 172.7 cm; Wt 65.0 kg
[2017-02-27 18:57] VITALS: BP 135/87; PULSE 108; RESP 16; TEMP 98.5; O2SAT 97
--- NOTE | 2017-02-27 20:24 | PD ---
Physical Exam Date Seen by Provider: Feb 27, 2017 Time Seen by Provider: 20:22 Narrative 56 YOWM C/O SI BUT NO PLAN. PT INTOXICATED AND HOMELESS. NO SI VS REVIEWED WAITING FOR BED PLACEMENT Data Data Last Documented VS Vital Signs Date Time Temp Pulse Resp B/P Pulse Ox O2 Delivery O2 Flow Rate FiO2 02/27/17 18:57 98.5 108 16 135/87 97 Room Air MDM Supervised Visit with FIDE: No Scripts No Active Prescriptions or Reported Meds Corky Benson Feb 27, 2017 20:24
== END 2017-02-27 23:59 | disposition left against medical advice (07) ==
LOC: NED 18:53
DX: F10.129 Alcohol abuse with intoxication, unspecified (principal)
CPT/HCPCS: 99281